=== PATIENT | female | born 1995 | race Caucasian/White ===

== ENCOUNTER 2016-09-17 16:01 | Emergency (ER) | payer SELFPAY ==
--- NOTE | 2016-09-17 16:30 | CPEKG ---
Heart Rate: 101 RR Interval: 594 P-R Interval: 116 QRSD Interval: 80 QT Interval: 348 QTC Interval: 452 P [place]: 61 QRS [place]: 65 T Wave [place]: 25 EKG Severity - OTHERWISE NORMAL ECG - EKG Impression: SINUS TACHYCARDIA Electronically Signed By: Mario Georges 17-Sep-2016 16:52:55
--- NOTE | 2016-09-17 16:51 | EDPHY ---
H & P Time Seen by Provider: 09/17/16 16:19 HPI/ROS: CHIEF COMPLAINT: Left-sided chest pain HISTORY OF PRESENT ILLNESS: 21-year-old female presents to the emergency department by private vehicle complaining of sudden onset of left-sided chest pain that started at 1:00 a.m.. Patient states that she denies any known trauma or injury. The pain is worse when she moves her arm around or when she pushes on the left side of her chest. She does not feel short of breath although she does have pain when she takes a big deep breath. She does not smoke. She is not on control pills. She denies calf pain or swelling. Denies recent travel. Denies abdominal pain. REVIEW OF SYSTEMS: Constitutional: No fever, no chills. Eyes: No double or blurry vision. ENT: No sore throat. Respiratory: No cough, no shortness of breath. Cardiac: chest pain. Gastrointestinal: No abdominal pain, vomiting or diarrhea. Genitourinary: No dysuria. Musculoskeletal: No neck or back pain. Skin: No rashes. Neurological: No headache. Past Medical/Surgical History: Negative Per day family medical history: No history of coronary artery disease at an early age. No history of pulmonary embolism. Social History: Single Smoking Status: Never smoked Physical Exam: General Appearance: Alert, no distress. Eyes: Pupils equal and round. Extraocular motions are all intact. ENT: Mouth: Mucous membranes moist. Respiratory: No wheezing, rhonchi, or rales, lungs are clear to auscultation. Patient has reproducible pain with palpation to the left anterior aspect of her chest. She also has reproducible pain with movement of her left shoulder specifically with external and internal rotation of the left shoulder. Cardiovascular: Regular rate and rhythm. Gastrointestinal: Abdomen is soft and nontender, no masses, no rebound or guarding, bowel sounds normal. Neurological: Alert and oriented x 3, cranial nerves II through XII grossly intact Skin: Warm and dry, no rashes. Musculoskeletal: Nontender to palpate along the cervical, thoracic or lumbar spine. Neck is supple. Extremities: Full range of motion and no peripheral edema. No calf pain or swelling. Psychiatric: Patient is oriented X 3, there is no agitation. Constitutional: Initial Vital Signs Temperature (C) 36.9 C 09/17/16 16:14 Heart Rate 90 09/17/16 16:14 Respiratory Rate 18 09/17/16 16:14 Blood Pressure 130/80 H 09/17/16 16:14 O2 Sat (%) 97 09/17/16 16:14 O2 Delivery Mode Room Air Allergies/Adverse Reactions: No Known Allergies Allergy (Unverified 09/17/16 16:17) Home Medications: Medication Instructions Recorded NK [No Known Home Meds] 09/17/16 Medical Decision Making - Diagnostics EKG Interpretation: EKG was reviewed by Dr. Mario Georges showing normal sinus rhythm. See interpretation in trace master. Imaging: Chest x-ray reveals no acute pulmonary disease. This is reviewed by myself the PAC system as well as by the radiologist. ED Course/Re-evaluation: 21-year-old female presents to the emergency department with left-sided chest pain. The patient has reproducible pain with palpation to the left anterior chest wall. She also has reproducible pain with movement of her left upper extremity. Chest x-ray was unremarkable. EKG initially revealed tachycardia although no other arrhythmias noted. I doubt this patient has a pulmonary embolism. The patient denies pleuritic chest pain. She is not short of breath. She does not smoke take control pills. No family history of clotting disorder. She has no calf pain or swelling. No recent trauma. Her D-dimer was negative. Patient was given 30 mg of IV Toradol and was feeling much better. She will be discharged home encouraged to continue anti-inflammatories and to avoid lifting until pain resolves. She was encouraged to return if she develops recurring pain, or if she feels worse in any way. Differential Diagnosis: Chest pain including but not limited to musculoskeletal chest pain, myocardial ischemia, pulmonary embolus, chest wall pain, pleural inflammation and pulmonary infectious causes. - Data Points Laboratory Results: 09/17/16 16:35 D-Dimer < 0.27 ug/mLFEU ug/mLFEU (0.00-0.50) Medications Given: Discontinued Medications Ketorolac Tromethamine (Toradol) 30 mg IVP EDNOW ONE Stop: 09/17/16 16:50 Last Admin: 09/17/16 16:55 Dose: 30 mg Departure - Departure Disposition: Home, Routine, Self-Care Clinical Impression: Chest wall pain Condition: Good Instructions: Chest Wall Pain (ED) Additional Instructions: Ibuprofen 600 mg every 8 hours as needed for pain. Activity as tolerated. Take deep breaths. Return if you feel short of breath, developed recurring pain in her chest especially with activity, or if you feel worse in any way. Referrals: En Nichole MD [Medical Doctor] - 2-3 days, if not improved (Primary care provider quality control microbiologist) [facility] [Outside] - As per Instructions [facility] [Outside] - As per Instructions Stand Alone Forms: Work Limited Duty
[2016-09-17] MEDS: KETOROLAC 30 MG/1 ML SDV IVP ONE (16:55)
[2016-09-17 18:24] VITALS: BP 108/78; PULSE 72; RESP 16; TEMP 98.2; O2SAT 99
== END 2016-09-17 18:23 | disposition home or self-care (01) ==
DX: R07.89 Other chest pain (principal)
CPT/HCPCS: 96374; J1885